=== PATIENT | female | born 1955 | race Caucasian/White ===

== ENCOUNTER → 2022-10-26 10:08 | Outpatient (BNVA) | payer MEDICARE, SELFPAY | PROVIDERS: Visit Provider Internal Medicine Endocrinology, Diabetes & Metabolism | DX: E05.90 Thyrotoxicosis, unspecified without thyrotoxic crisis or storm (principal); E04.1 Nontoxic single thyroid nodule | CPT/HCPCS: 36415; 83520; 84439; 84443; 84481; 99202 ==

== ENCOUNTER 2022-10-26 11:49 | Outpatient (REF) | payer MEDICARE, SELFPAY ==
[2022-10-26 14:17] LABS: Free T4 (Free Thyroxine) 3.18 ng/dL (0.71-1.85); Thyroid Stimulating Hormone < 0.01 uIU/mL (0.32-4.0)
[2022-10-28 01:58] LABS: Triiodothyronine T3 Free >20.0 pg/mL (2.3-4.2)
[2022-10-30 16:39] LABS: Thyrotropin Receptor Antibody 28.25 IU/L (<=2.00)
== END 2022-10-26 11:50 | disposition home or self-care (01) ==
LOC: HO.10HDL 11:49
PROVIDERS: Visit Provider Internal Medicine Endocrinology, Diabetes & Metabolism
DX: Z13.89 Encounter for screening for other disorder (principal)
CPT/HCPCS: 36415; 83520; 84439; 84443; 84481

== ENCOUNTER 2022-11-29 12:03 | Outpatient (REF) | payer MEDICARE, SELFPAY ==
[2022-11-29 13:09] LABS: MANUAL DIFF FLAG NO
[2022-11-29 13:13] LABS: Basophils Percent Auto 0.4 % (0-2); Eosinophils Absolute Auto 0.3 X10*3/uL (0.0-0.4); Eosinophils Percent Auto 4.4 % (0-4); Hematocrit 43.1 % (37.0-47.0); Hemoglobin 13.8 g/dl (12.0-16.0); Imm Gran Abs Auto 0.01 X10*3/uL (0.00-0.03); Imm Gran Pct Auto 0.1 % (0.0-0.4); Lymphocytes Percent Auto 29.3 % (20-40); Mean Corpuscular Hemoglobin 26.8 pg (27.0-33.0); Mean Corpuscular Volume 83.7 fL (80.0-98.0); Mean Platelet Volume 11.3 fL (9.4-12.3); Monocytes Absolute Auto 0.5 X10*3/uL (0.1-1.2); Monocytes Percent Auto 7.2 % (2-11); Neutrophils Percent Auto 58.6 % (45-73); Platelet Count 229 X10*3/uL (160-400); Red Blood Count 5.15 X10*6/uL (4.20-5.50); Red Cell Distribution Width 13.9 % (11.0-16.0); White Blood Count 6.8 X10*3/uL (4.8-10.8)
[2022-11-29 14:09] LABS: Free T4 (Free Thyroxine) 0.51 ng/dL (0.71-1.85); Thyroid Stimulating Hormone < 0.01 uIU/mL (0.32-4.0)
[2022-12-01 00:38] LABS: Triiodothyronine T3 Free 2.2 pg/mL (2.3-4.2)
== END 2022-11-29 12:04 | disposition home or self-care (01) ==
LOC: HO.10HDL 12:03
PROVIDERS: Visit Provider Internal Medicine Endocrinology, Diabetes & Metabolism
DX: E05.90 Thyrotoxicosis, unspecified without thyrotoxic crisis or storm (principal)
CPT/HCPCS: 36415; 84439; 84443; 84481; 85025

== ENCOUNTER 2022-12-01 10:29 | Outpatient (AMB) | payer MEDICARE, SELFPAY ==
--- NOTE | 2022-12-01 10:32 | MHC.OFFVIS ---
Intake Vital Signs 12/01/22 10:33 Height 5 ft 6.5 in Weight 126 lb 8.725 oz BMI 20.1 BP 138/78 Blood Pressure Location Rt brachial Position Sitting Pulse 62 Pulse Source Pulse Oximeter Intake Visit Reasons: f/u hyperthyroidism Intake Note: Patient present today for Hyperthyroidism follow up visit. Associate Product Manager Required: No Accompanied by: Self / Same As Patient Allergies No Known Allergies Allergy (Verified 12/01/22 10:33) Medication List - Last Reconciled 12/01/22 by Sam Young MD methimazole 10 mg PO DAILY propranolol 20 mg PO BID HPI HPI Comments History of Present Illness Details 67 YO F with who is seen in consultation for hyperthyroidism at the request of PCP. Was initially diagnosed with hyperthyroidism in Winter 2021 with thyroid US revealing diffusely heterogeneous and hypervascular thyroid with 2.6 cm hyperechoic pseudo nodule left lobe. Currently denies any dysphagia or hoarseness of voice. Denies sensation of swelling in the neck or difficulty breathing while lying flat. Denies any tenderness in the neck. Denies any palpitations, tremors, weight loss, freq of 30 lbs since Winter +frequent bowel movements. Denies any ocular complaints, blurred or double vision. Denies hair loss, dry skin, heat or cold intolerance, weight gain, confusion. [Denies] any history of head or neck irradiation. Denies any family history of thyroid cancer por thyroid disease . Not Had biopsy of nodules in the past. Thyroid US: See above not used kelp or biotin Labs: 08/24/2022 TSH is less than 0.01 free T4 4.7 free T3 > 20 Diagnosed with Graves disease and currently on methimazole 10 mg g a day reduced from 20 mg because recent blood work showed low free T4 and free T3 [facility] Medical History (Updated 10/26/22 @ 11:03 by Sam Young MD) Hyperthyroidism Surgical History History of ectopic Family History Mother High blood pressure Father Diabetes Colon cancer Heart disease Social History Alcohol intake: current Alcohol intake frequency: holidays/special occasions only Patient Tobacco Use Status: Never used Tobacco Physical Exam Vital Signs: BMI result Body Mass Index 20.1 HEENT reveals absence of lid lag , stare or proptosis or eyebrow loss. Thyroid gland measure 15 gms . No nodules or tenderness palpated. There is no cervical adenopathy palpated. Lungs CTA. Heart S1, S2 Reg R/R -M/R/G. Abdominal exam benign. Skin exam reveals absence of dryness or thyroid dermopathy or vitiligo. Nail exam reveals absence of thyroid acropachy or oncholysis. Neurologic exam reveals 2+ reflexes . Muscle Strength is 5/5 proximally. There are no tremors in upper extremities. Assessment & Plan Assessment & Plan (1) Thyroid nodule: Code(s): E04.1 - Nontoxic single thyroid nodule Plan: This is a 67-year-old white female found to have primary hyperthyroidism secondary to Graves disease. Patient is currently on beta-shreyas and methimazole. Dose was recently decreased to 10 mg Plan is to recheck thyroid function studies along liver panel and CBC in 4 weeks time and adjust methimazole accordingly (2) Hyperthyroidism: Code(s): E05.90 - Thyrotoxicosis, unspecified without thyrotoxic crisis or storm Coding Level of Care Code Est Pt Level 3 (18651) Diagnoses Thyroid nodule E04.1 Hyperthyroidism E05.90
[2022-12-01 10:33] VITALS: BP 138/78; PULSE 62; BMI 20.1
== END 2022-12-01 11:06 | disposition home or self-care (01) ==
PROVIDERS: Visit Provider Internal Medicine Endocrinology, Diabetes & Metabolism
DX: E04.1 Nontoxic single thyroid nodule (principal); E05.90 Thyrotoxicosis, unspecified without thyrotoxic crisis or storm
CPT/HCPCS: 99213

== ENCOUNTER → 2022-12-01 10:29 | Outpatient (BNVA) | payer MEDICARE, SELFPAY | PROVIDERS: Visit Provider Internal Medicine Endocrinology, Diabetes & Metabolism | DX: E05.00 Thyrotoxicosis with diffuse goiter without thyrotoxic crisis or storm (principal); E04.1 Nontoxic single thyroid nodule; Z79.899 Other long term (current) drug therapy | CPT/HCPCS: 99212 ==

== ENCOUNTER 2023-01-11 11:54 | Outpatient (REF) | payer MEDICARE, OTHER, SELFPAY ==
[2023-01-11 13:16] LABS: MANUAL DIFF FLAG NO
[2023-01-11 13:25] LABS: Basophils Percent Auto 0.6 % (0-2); Eosinophils Absolute Auto 0.2 X10*3/uL (0.0-0.4); Hematocrit 45.9 % (37.0-47.0); Hemoglobin 14.9 g/dl (12.0-16.0); Imm Gran Abs Auto 0.02 X10*3/uL (0.00-0.03); Imm Gran Pct Auto 0.3 % (0.0-0.4); Lymphocytes Absolute Auto 2.4 X10*3/uL (1.2-4.9); Lymphocytes Percent Auto 34.2 % (20-40); Mean Corpuscular HGB Conc 32.5 g/dl (31.0-35.0); Mean Corpuscular Hemoglobin 28.3 pg (27.0-33.0); Mean Corpuscular Volume 87.3 fL (80.0-98.0); Mean Platelet Volume 11.5 fL (9.4-12.3); Monocytes Absolute Auto 0.6 X10*3/uL (0.1-1.2); Monocytes Percent Auto 8.1 % (2-11); Neutrophils Absolute Auto 3.8 x10*3/uL (2.0-8.3); Neutrophils Percent Auto 53.8 % (45-73); Platelet Count 262 X10*3/uL (160-400); Red Blood Count 5.26 X10*6/uL (4.20-5.50); Red Cell Distribution Width 16.4 % (11.0-16.0)
[2023-01-11 14:10] LABS: Alanine Aminotransferase 20 U/L (0-31); Alkaline Phosphatase 211 U/L (39-117); Aspartate Amino Transferase 27 U/L (5-31); Bilirubin Direct 0.2 mg/dL (0.0-0.5); Bilirubin Total 0.6 mg/dL (0.0-1.0); Total Protein 6.5 g/dL (6.5-8.0)
[2023-01-11 14:14] LABS: Free T4 (Free Thyroxine) 0.51 ng/dL (0.71-1.85); Thyroid Stimulating Hormone 13.04 uIU/mL (0.32-4.0)
[2023-01-12 18:22] LABS: Triiodothyronine T3 Free 2.3 pg/mL (2.3-4.2)
== END 2023-01-11 11:55 | disposition home or self-care (01) ==
LOC: HO.10HDL 11:54
PROVIDERS: Visit Provider Internal Medicine Endocrinology, Diabetes & Metabolism
DX: E05.90 Thyrotoxicosis, unspecified without thyrotoxic crisis or storm (principal)
CPT/HCPCS: 36415; 80076; 84439; 84443; 84481; 85025